=== PATIENT | female | born 1990 | race Caucasian/White ===

== ENCOUNTER 2017-01-21 05:53 | Emergency (ER) | payer SELFPAY ==
[~2017-01-21 05:53] MED LIST: MOTRIN-DPS800 MG PO; NIPPLECREAM TP; PRENATAL VIT1 TAB PO; TYLENOL #3 DPS1 TAB PO
--- NOTE | 2017-02-19 07:39 | ER ---
ADMIT: 01/21/2017 RM/LOC: ER [facility] MR#: [id number] [place], [place] [id number] YO [address] [facility] [address] [address] Emergency Room Report SEX: F AGE: 26 : 1990 DATE: 01/21/2017 ADDENDUM: A 26-year-old female, presents with 24 hours of intermittent abdominal achy pain. On physical exam, she does appear uncomfortable and she has some right upper quadrant tenderness. I did get labs, which show normal CBC, normal urine other than hazy, and negative urine . The patient did get a right upper quadrant ultrasound in the Emergency Department, which showed cholelithiasis without features of cholecystitis. She received Jasper for pain, her symptoms were significantly improved. She is discharged home with a diagnosis of biliary colic with gallstones. Michele Barber MD/ fernandez JOB #: [id number] CC: Michele Barber MD, Attending Physician James Flor MD, Family Physician
== END 2017-01-21 08:52 | disposition home or self-care (01) ==
LOC: ER 05:53
DX: K80.50 Calculus of bile duct without cholangitis or cholecystitis without obstruction (principal)